=== PATIENT | female | born 1935 | race Caucasian/White ===

== ENCOUNTER 2022-08-29 04:29 | Day surgery (SDC) | payer OTHER, BC ==
[2022-08-28 16:20] VITALS: BMI 26.4
[2022-08-29 10:02] VITALS: TEMP 98
[2022-08-29 10:04] VITALS: RESP 18
[2022-08-29 10:07] VITALS: BP 105/67; PULSE 58
== END 2022-08-29 09:20 | disposition home or self-care (01) ==
LOC: JASU-ENDO 04:29
PROVIDERS: ATTEND Student in an Organized Health Care Education/Training Program
PROC: 0DBL8ZX Excision of Transverse Colon, Via Natural or Artificial Opening Endoscopic, Diagnostic (ICD-10-PCS; 2022-08-29)
PROC: 0DBK8ZX Excision of Ascending Colon, Via Natural or Artificial Opening Endoscopic, Diagnostic (ICD-10-PCS; principal; 2022-08-29 08:00)
DX: Z12.11 Encounter for screening for malignant neoplasm of colon (principal); D12.2 Benign neoplasm of ascending colon; K63.5 Polyp of colon; K55.20 Angiodysplasia of colon without hemorrhage; Z86.010 Personal history of colon polyps
CPT/HCPCS: 88305-TC